=== PATIENT | female | born 1980 | race Two or more races ===

== ENCOUNTER 2016-12-23 06:24 | Day surgery (SDC) | payer OTHER ==
[2016-12-23] VITALS (9 sets, daily range): BP systolic 103–126; BP diastolic 60–78
[~2016-12-23] VITALS: Ht 154.9 cm; Wt 72.6 kg
[~2016-12-23 06:24] MED LIST: IBUPROFEN600 MG ORAL; TYLENOL EXTRA500 MG ORAL; ceFAZolin 1gm in D5W 55ml IVP ONE; celeBREX 200mg Cap **SURGERY PATIENTS ONLY ORAL ONE; oxyCONTIN 20mg tab ORAL ONE
[2016-12-23] MEDS ORDERED: fentaNYL 100 mcg/2 mL IV ONE (06:25)
[2016-12-23] MEDS ORDERED: Propofol 10mg/ml 20ml IV ONE (06:25)
[2016-12-23] MEDS ORDERED: Midazolam 2mg/2ml Inj ONE (06:25)
[2016-12-23] MEDS ORDERED: Morphine Sulfate PF 10 ML ONE (06:26)
--- NOTE | 2016-12-23 07:12 | Pre-Procedure Note/Attestation ---
Pre-Procedure Note/Attestation Complete Prior to Procedure Planned Procedure: right Procedure Narrative: knee arthroscopy, possible menisectomy, possible synovectomy Indications for Procedure Pre-Operative Diagnosis: right knee internal derangement Attestation I attest that I discussed the nature of the procedure; its benefits; risks and complications; and alternatives (and the risks and benefits of such alternatives ), prior to the procedure, with the patient (or the patient's legal parts sales representative). I attest that, if there was a reasonable possibility of needing a blood transfusion, the patient (or the patient's legal parts sales representative) was given the [facility] standardized written summary, pursuant to the Jamil Tonja Blood Safety Act ([place] Health and Safety Code # 1645, as amended). I attest that I re-evaluated the patient just prior to the surgery and that there has been no change in the patient's H&P, except as documented below: MICAELA WHITE Dec 23, 2016 07:12
--- NOTE | 2016-12-23 07:13 | Operative Note - PDOC ---
Operative Note Operative Note Pre-op Diagnosis: right knee internal derangement Procedure: see op report Post-op Diagnosis: same as pre-op plus Operative Findings: consistent w/pre-op dx studies Anesthesia: MAC Specimen: none Complications: none Condition: stable Estimated Blood Loss: none Implant(s) used?: MICAELA Yu Dec 23, 2016 07:13
[2016-12-23] MEDS: Bupivacaine w/Epi 0.25% 30ml Vial INJ ONE ×2 (09:00→09:34)
[2016-12-23] MEDS: Bupivacaine 0.25% Inj 30ml INJ ONE ×2 (09:00→09:34)
[2016-12-23] MEDS: Ketorolac 30mg Inj ONE ×2 (09:00→09:34)
[2016-12-23] MEDS ORDERED: NS Irrig 4000ml IRRIG ONE ×2 (09:01→09:35)
[2016-12-23] MEDS: Lidocaine 1% 10mg/ml/Epi 0.005mg/ml 30ml vial INJ ONE ×2 (09:01→09:35)
[2016-12-23] MEDS: Kenalog-40 1ml Vial ONE ×2 (09:01→09:34)
[2016-12-23] MEDS ORDERED: Duramorph PF 10mg/10ml amp EPIDUR ONE (09:35)
[2016-12-23] MEDS ORDERED: Ketorolac 30mg Inj IV PRN (10:00)
[2016-12-23] MEDS ORDERED: Hydromorphone 0.5mg/0.5ml inj IVP PRN (10:00)
[2016-12-23] MEDS ORDERED: fentaNYL 100 mcg/2 mL IV PRN (10:00)
[2016-12-23] MEDS ORDERED: Midazolam 2mg/2ml Inj IVP PRN (10:00)
--- NOTE | 2016-12-23 10:04 | Anethesia Preoperative Eval ---
Anesthesia Pre-op PMH/ROS General Date of Evaluation: Dec 23, 2016 Time of Evaluation: 09:00 ASA Score: ASA 1 Mallampati Score Class I : Soft palate, uvula, fauces, pillars visible Class II: Soft palate, uvula, fauces visible Class III: Soft palate, base of uvula visible Class IV: Only hard plate visible Mallampati Classification: Class I Anesthesia History: none Allergies: Coded Allergies: No Known Allergies (Unverified , 12/22/16) Anesthesia Pre-op Phys. Exam Physician Exam Last Vital Signs Date Time Temp Pulse Resp B/P Pulse Ox O2 Delivery O2 Flow Rate FiO2 12/23/16 09:53 97.4 62 13 104/60 100 Simple Mask 6.0 Anesthesia Pre-op A/P Labs Urine Test Test 12/23/16 06:30 Urine HCG, Qualitative Negative Shalini Hartman MD Dec 23, 2016 10:04
--- NOTE | 2016-12-23 10:06 | Immediate Post-Op Evaluation ---
Immediate Post-Op Evalulation Immediate Post-Op Evalulation Procedure: knee arthroscopy Date of Evaluation: Dec 23, 2016 Time of Evaluation: 10:06 Nausea: No Vomiting: No Hydration Status: adequate Given Within 1 Hr of Incision: Yes Shalini Hartman MD Dec 23, 2016 10:06
--- NOTE | 2016-12-23 10:49 | 48 Hour Post Anesthesia Eval ---
Post Anesthesia Evaluation Procedure: knee arthroscopy Date of Evaluation: Dec 23, 2016 Time of Evaluation: 10:49 Nausea: No Vomiting: No Hydration Status: adequate Shalini Hartman MD Dec 23, 2016 10:49
[2016-12-23] MEDS ORDERED: Norco 5mg/325mg tab ORAL PRN (15:01)
[2016-12-23] MEDS ORDERED: HYDROmorphone 1mg/ml Carpuject SUBQ PRN (15:01)
[2016-12-23] MEDS ORDERED: Tylenol #3 tab (300mg/30mg) ORAL PRN (15:01)
[2016-12-23] MEDS ORDERED: D5 1/2NS 1,000 ML IV SCH (15:01)
--- NOTE | 2016-12-23 21:30 | Operative Note - Dictated ---
DATE OF OPERATION: 12/23/2016 PREOPERATIVE DIAGNOSIS: Right knee internal derangement. POSTOPERATIVE DIAGNOSES: Hypertrophic synovial tissue, medial and lateral patellofemoral compartment. PROCEDURE PERFORMED: Right knee arthroscopy and synovectomy, medial and lateral patellofemoral compartment. SURGEON: Apollo Molina M.D. ANESTHESIA: MAC. INDICATION FOR PROCEDURE: The patient is a pleasant female, who has had chronic right knee pain. She subsequently failed conservative treatment. After prolonged symptoms, we elected to undergo right knee diagnostic arthroscopy with possible synovectomy. Risks, limitations, expectations, and complications of the procedure were discussed in detail including continued pain, need for future surgery, risk of anesthesia, and medical complications. DESCRIPTION OF PROCEDURE: An informed consent was obtained. The patient was brought to the operating room where the patient underwent monitored anesthesia control. Tourniquet was applied to the right proximal thigh. Right leg was prepped and draped in a sterile manner. Ancef was administered, 20 mL of 0.25% Marcaine plain was injected into the right knee. Portal sites were injected with 1% lidocaine with epinephrine. Esmarch was used to exsanguinate the extremity. Inferolateral stab incision was then made. Trocar was introduced into the knee joint. Of note, while introducing the trocar, there was significant resistance along the lateral gutter. Once the camera was positioned into the suprapatellar pouch, there was hypertrophic synovial tissue making visualization of the patellofemoral component somewhat difficult. Medial compartment and gutter were then entered. Medial working portal was established. The medial compartment of the knee was entered and the meniscus was probed and noted to be intact. Shaver was then placed in the hypertrophic debrided to better visualize AC and lateral compartment of the knee. ACL was probed and noted to be intact. Lateral compartment was entered and there is discoid meniscus, but no obvious tear. At this point, the camera was repositioned in the patellofemoral compartment and synovectomy was completed. Once this was done, the instruments were removed. Portal sites were closed using 3-0 Monocryl sutures. Steri-Strips and sterile dressing were applied. The patient was awoken and taken to recovery room with stable vital signs. ESTIMATED BLOOD LOSS: None. COMPLICATIONS: None. SPECIMENS: None. IMPLANTS: None. Apollo Molina M.D. DR: DHAVAL JOB#: [id number] CC:
== END 2016-12-23 13:10 | disposition home or self-care (01) ==
LOC: SUR 06:24
DX: M67.261 Synovial hypertrophy, not elsewhere classified, right lower leg (principal)
CPT/HCPCS: 29876; 81025; 97161; J1885; J2250; J2274; J2704; J3010; J3301; J3490; 94003; 94150